=== PATIENT | female | born 1955 | race Caucasian/White ===

== ENCOUNTER 2024-11-14 13:58 | Outpatient (CLI) | payer MEDICARE, SELFPAY ==
--- NOTE | 2024-11-14 14:00 | MM_ITS ---
WS: [id number] SCREENING DIGITAL BREAST TOMOSYNTHESIS MAMMOGRAM WITH CAD HISTORY: SCREENING COMPARISON: None available. Bilateral CC and MLO with tomosynthesis and synthetic mammography submitted. Computer aided detection analyzed. Breast composition: There are scattered areas of fibroglandular density. Irregular asymmetry in the posterior RIGHT breast seen only on the cc view measures 5 x 5 4 mm. No additional abnormalities within either breast. No distortion. No calcification. MM/MM scr BI tomosynthesis [id number] IMPRESSION: BI-RADS: 0 - Incomplete: Need additional imaging evaluation. FOLLOW UP: Need Additional Imaging RIGHT breast: Spot compression view (CC ). True ML. Ultrasound to follow if abn ormality persists.
== END 2024-11-14 13:59 | disposition home or self-care (01) ==
LOC: MOBLMAM 14:04
PROVIDERS: PCP Student in an Organized Health Care Education/Training Program; Visit Provider Student in an Organized Health Care Education/Training Program
DX: Z12.31 Encounter for screening mammogram for malignant neoplasm of breast (principal); R92.323 Mammographic fibroglandular density, bilateral breasts
CPT/HCPCS: 77063; 77067